=== PATIENT | male | born 1985 | race Caucasian/White ===

== ENCOUNTER 2017-03-25 11:51 | Emergency (ER) | payer OTHER ==
[~2017-03-25] VITALS: Ht 180.3 cm; Wt 81.4 kg
[2017-03-25 13:04] LABS: HEMATOCRIT 43.2 % (38.0-50.0); MCH 29.2 PG (29.0-34.0); MCHC 33.6 G/DL (30.0-36.0); MCV 87.1 FL (86-99); PLATELET COUNT 290 K/uL (156-360); RBC DIS.WIDTH-CV 12.8 % (11.8-14.6); RBC DIS.WIDTH-SD 40.7 % (39-53); RED BLOOD COUNT 4.96 M/uL (4.00-5.50); WHITE BLOOD COUNT 8.9 K/uL (4.1-10.2)
[2017-03-25 13:05] LABS: ADD MIUA? YES; BILIRUBIN NEGATIVE; BLOOD NEGATIVE; COLOR YELLOW ((YELLOW)); GLUCOSE (STRIP) NEGATIVE; KETONES 5; LEUKOCYTES NEGATIVE; NITRITE NEGATIVE; PROTEIN (STRIP) NEGATIVE; UROBILINOGEN 0.2 MG/DL (0.2-1.0)
[2017-03-25 13:07] LABS: BACTERIA NONE SEEN /HPF; EPITHELIAL CELLS NONE SEEN /HPF; MUCUS NONE SEEN /LPF; RED BLOOD CELLS 0-5 /HPF (0-5); WHITE BLOOD CELLS 0-5 /HPF (0-5)
[2017-03-25 13:10] LABS: CHLORIDE 107 mEq/L (99-109); SODIUM 141 mEq/L (136-147)
[2017-03-25 13:12] LABS: GLUCOSE 88 mg/dL (70-99)
[2017-03-25 13:13] LABS: ANION GAP 9 MEQ/L (2-14)
[2017-03-25 13:16] LABS: ALKALINE PHOSPHATASE 51 IU/L (3-129); GFR ESTIMATE (CALCULATED) > 59 mL/min/
[2017-03-25 13:17] LABS: UREA NITROGEN (BUN) 16 mg/dL (9-23)
[2017-03-25 13:19] LABS: LIPASE 7 U/L (1.0-51.0)
[2017-03-25] MEDS ORDERED: PREDNISONE10 MG PO (13:36)
[2017-03-25] MEDS ORDERED: VALIUM5 MG PO (13:36)
[2017-03-25 14:00] VITALS: BP 126/70
== END 2017-03-25 14:01 | disposition home or self-care (01) ==
LOC: EME 11:51
PROVIDERS: Physician Assistant
DX: M54.5 Low back pain (principal); M62.838 Other muscle spasm; R10.9 Unspecified abdominal pain; F17.200 Nicotine dependence, unspecified, uncomplicated
CPT/HCPCS: 74176; 80053; 81003; 83690; 85027; 99281; 99284